=== PATIENT | female | born 1985 | race Caucasian/White ===

== ENCOUNTER → 2017-01-20 | Outpatient (CLI) | payer OTHER ==
[~2017-01-20] MED LIST: ACYC800T4 PO; ALPR-475 PO; CETI10TA24 PO; IBUP-1222 PO; LISD40CA PO; MULT-82 PO
== END | disposition home or self-care (01) ==
LOC: LAB 15:21
PROVIDERS: ATTEND Anesthesiology
DX: Z01.812 Encounter for preprocedural laboratory examination (principal)
CPT/HCPCS: 36415; 84703; 85014

== ENCOUNTER 2017-04-04 21:08 | Emergency (ER) | payer OTHER ==
[~2017-04-04] VITALS: Ht 172.7 cm; Wt 62.1 kg
[~2017-04-04 21:08] MED LIST changes: -LISD40CA PO; +LISD40CA3 PO; +MULT-224 PO; -MULT-82 PO
[2017-04-04] MEDS ORDERED: IBUPROFEN 200 MG TABLET ONE (21:46)
[2017-04-04] MEDS ORDERED: PROCHLORPERAZINE 5 MG/ML, 2ML ONE (21:46)
[2017-04-04] MEDS ORDERED: DIPHENHYDRAMINE 50 MG/ML, 1ML ONE (21:46)
[2017-04-04] MEDS ORDERED: GABA-827 PO (21:58)
[2017-04-04] MEDS ORDERED: DIPHENHYDRAMINE 50 MG/ML, 1ML IVPush ONE (22:00)
[2017-04-04] MEDS ORDERED: IBUPROFEN 200 MG TABLET PO ONE (22:00)
[2017-04-04] MEDS ORDERED: SODIUM CHLORIDE FLUSH 10ML SYR IVF ONE (22:00)
[2017-04-04] MEDS ORDERED: PROCHLORPERAZINE 5 MG/ML, 2ML IVPush ONE (22:00)
[2017-04-04] MEDS ORDERED: SODIUM CHLORIDE 0.9% 1,000ML IVBOLUS ONE (22:00)
[2017-04-04 22:40] VITALS: BP 116/80
== END 2017-04-04 22:41 | disposition home or self-care (01) ==
LOC: ED 22:16
DX: R51 Headache (principal); J45.909 Unspecified asthma, uncomplicated; R11.2 Nausea with vomiting, unspecified
CPT/HCPCS: 96374; 96375; 99284; J0780; J1200; J7030